=== PATIENT | male | born 1980 | race Caucasian/White ===

== ENCOUNTER 2016-05-28 11:23 | Emergency (ER) | payer OTHER ==
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
[~2016-05-28 11:23] MED LIST: CIPRO PO; FLAGYL PO; NO MEDICATIONS; PERCOCET 7.5-31 EACH PO
== END 2016-05-28 11:48 | disposition home or self-care (01) ==
LOC: SED 11:23
DX: S93.602A Unspecified sprain of left foot, initial encounter (principal); F17.200 Nicotine dependence, unspecified, uncomplicated; V27.4XXA Motorcycle driver injured in collision with fixed or stationary object in traffic accident, initial encounter; Y92.830 Public park as the place of occurrence of the external cause
CPT/HCPCS: 29540; 73610; 73630; 99283

== ENCOUNTER 2016-07-17 21:25 | Emergency (ER) | payer OTHER ==
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
== END 2016-07-18 01:35 | disposition home or self-care (01) ==
LOC: CED 21:25
DX: M79.672 Pain in left foot (principal); F17.200 Nicotine dependence, unspecified, uncomplicated
CPT/HCPCS: 73630; 99283